=== PATIENT | female | born 1985 | race Hispanic/Latino ===

== ENCOUNTER 2018-03-28 23:45 | Emergency (ER) | payer SELFPAY ==
[2018-03-29 00:19] VITALS: BP 107/69; PULSE 70; RESP 20; TEMP 97.9; O2SAT 98
--- NOTE | 2018-03-29 00:38 | C.PDOC ---
History Of Present Illness Patient complains of sore throat, malaise, bodyaches and fever since yesterday. Time Seen by Provider: 03/29/18 00:21 Chief Complaint (Nursing): ENT Problem History Per: Patient History/Exam Limitations: None Onset/Duration Of Symptoms: Days (2) Current Symptoms Are (Timing): Still Present Past Medical History Reviewed: Historical Data, Nursing Documentation, Vital Signs Vital Signs: Last Vital Signs Temp 97.9 F 03/29/18 00:15 Pulse 70 03/29/18 00:15 Resp 20 03/29/18 00:15 BP 107/69 03/29/18 00:15 Pulse Ox 98 03/29/18 00:15 - Medical History PMH: Asthma Family History: States: Unknown Family Hx - Social History Hx Alcohol Use: Yes Hx Substance Use: No Review Of Systems Constitutional: Positive for: Fever, Chills, Malaise Eyes: Negative for: Vision Change, Redness ENT: Positive for: Throat Pain. Negative for: Ear Pain Cardiovascular: Negative for: Chest Pain Respiratory: Negative for: Cough, Shortness of Breath Gastrointestinal: Negative for: Abdominal Pain Skin: Negative for: Rash Neurological: Negative for: Headache Physical Exam - Physical Exam Appears: Non-toxic, No Acute Distress Skin: Warm, Dry, No Rash Head: Atraumatic, Normacephalic Eye(s): bilateral: Normal Inspection, EOMI Ear(s): Bilateral: Normal (no erythema) Nose: Normal, No Flaring Oral Mucosa: Moist Throat: Erythema, No Drooling, No Mass Neck: Normal ROM Lymphatic: Adenopathy (anterior cervical LN swelling on left side) Chest: Symmetrical Cardiovascular: Rhythm Regular, No Murmur Respiratory: No Wheezing Extremity: Bilateral: Atraumatic, Normal ROM Neurological/Psych: Oriented x3, Normal Speech ED Course And Treatment O2 Sat by Pulse Oximetry: 98 Medical Decision Making Medical Decision Making: Impression: pharyngitis Will treat with Amoxicillin PO Patient remained afebrile in no distress. Disposition Counseled Patient/Family Regarding: Diagnosis, Need For Followup, Rx Given - Disposition Disposition: HOME/ ROUTINE Disposition Time: 00:42 Condition: GOOD Additional Instructions: Take antibiotic twice daily and be sure to finish taking all of antibiotic Take Tylenol or Motrin alternating every 4-6 hours for Fever 100.4F or higher. Rest and drink plenty of fluids to prevent dehydration. Try vanilla ice cream to improve eating/drinking, this is cold soothing and tastes good. May also try lozenges or cepacol spray over the counter. Prescriptions: Amoxicillin 875 mg PO BID #20 tablet Instructions: Sore Throat, Adult (DC) Forms: [facility] (Malay) - POA Present On Arrival: None - Clinical Impression Clinical Impression: Pharyngitis
== END 2018-03-29 00:49 | disposition home or self-care (01) ==
LOC: C.ER 23:45
DX: J02.9 Acute pharyngitis, unspecified (principal)